=== PATIENT | male | born 1990 | race American Indian/Alaskan Native ===

== ENCOUNTER 2017-03-06 14:18 | Emergency (ER) | payer MEDICARE, OTHER ==
[2017-03-06 15:15] VITALS: BMI 23.9
[2017-03-06 15:20] VITALS: BP 103/52; PULSE 97; RESP 19; TEMP 98.3; O2SAT 98
--- NOTE | 2017-03-06 15:28 | ED PDOC ---
Arrival/HPI - General Chief Complaint: Lower Extremity Problem/Injury Time Seen by Provider: 03/06/17 15:22 Historian: Patient - History of Present Illness Narrative History of Present Illness (Text): 03/06/17 15:25 26yo wheel chair dependent male present with complaint of right ankle pain since this morning. States he usually gets around, goes to the gym and other places. states he is not sure if his hit his ankle against anything. Pain is with palpation of foot/ankle. did not take any analgesic. Denies calf pain, edema, chest pain, recent trauma, any other complaint. Past Medical History - Provider Review Nursing Documentation Reviewed: Yes - Infectious Disease Hx of Infectious Diseases: None - Tetanus Immunization Tetanus Immunization: Unknown - Past Medical History Past Medical History: No Previous - Cardiac Hx Cardiac Disorders: No - Pulmonary Hx Respiratory Disorders: No - Neurological Hx Neurological Disorder: Yes Other/Comment: paraplegic - HEENT Hx HEENT Disorder: No - Renal Hx Renal Disorder: No - Endocrine/Metabolic Hx Endocrine Disorders: No - Hematological/Oncological Hx Blood Disorders: No - Integumentary Hx Dermatological Disorder: No - Musculoskeletal/Rheumatological Hx Musculoskeletal Disorders: Yes Other/Comment: paraplegic - Gastrointestinal Hx Gastrointestinal Disorders: No - Genitourinary/Gynecological Hx Genitourinary Disorders: Yes Other/Comment: DEPENDENT ON URINARY CATHETER, self cath. - Psychiatric Hx Psychophysiologic Disorder: No Hx Depression: No Hx Emotional Abuse: No Hx Physical Abuse: No Hx Substance Use: No (sometimes) - Past Surgical History Past Surgical History: No Previous - Anesthesia Hx Anesthesia: Yes Hx Anesthesia Reactions: No - Suicidal Assessment Feels Threatened In Home Enviroment: No Family/Social History - Physician Review Nursing Documentation Reviewed: Yes Family/Social History: Unknown Family HX Smoking Status: Current Some Days Smoker Hx Alcohol Use: No Hx Substance Use: No (sometimes) Substance used: marijuana Hx Substance Use Treatment: No Allergies/Home Meds Allergies/Adverse Reactions: Allergies No Known Allergies Allergy (Verified 03/06/17 15:14) Home Medications: Home Meds Medication Instructions Recorded Confirmed Baclofen 20 mg PO QID 03/29/14 03/06/17 Pregabalin [Lyrica] 100 mg PO BID 03/29/14 03/06/17 Review of Systems - Physician Review All systems were reviewed & negative as marked: Yes - Review of Systems Constitutional: Normal Eyes: Normal ENT: Normal Respiratory: Normal Cardiovascular: Normal Gastrointestinal: Normal Genitourinary Male: Normal Musculoskeletal: Arthralgias (Right ankle/foot pain) Skin: Normal Neurological: Normal Endocrine: Normal Hemo/Lymphatic: Normal Psychiatric: Normal Physical Exam Vital Signs Reviewed: Yes Vital Signs Temp Pulse Resp BP Pulse Ox 03/06/17 15:17 98.3 F 97 H 19 103/52 L 98 Temperature: Afebrile Blood Pressure: Normal Pulse: Regular Respiratory Rate: Normal Appearance: Positive for: Well-Appearing, Non-Toxic, Comfortable Pain Distress: None Mental Status: Positive for: Alert and Oriented X 3 - Systems Exam Head: Present: Atraumatic, Normocephalic Pupils: Present: PERRL Extroacular Muscles: Present: EOMI Conjunctiva: Present: Normal Mouth: Present: Moist Mucous Membranes Neck: Present: Normal Range of Motion Respiratory/Chest: Present: Clear to Auscultation, Good Air Exchange. No: Respiratory Distress, Accessory Muscle Use Cardiovascular: Present: Regular Rate and Rhythm, Normal S1, S2. No: Murmurs Abdomen: Present: Normal Bowel Sounds. No: Tenderness, Distention, Peritoneal Signs Back: Present: Normal Inspection Upper Extremity: Present: Normal Inspection. No: Cyanosis, Edema Lower Extremity: Present: NORMAL PULSES, Normal ROM, Tenderness (Lateral right malleolus and proximal foot), Neurovascularly Intact. No: Edema, CALF TENDERNESS, Cyanosis, Swelling, Erythema, Deformity, Temperature Abnormalties Neurological: Present: GCS=15, CN II-XII Intact, Speech Normal Skin: Present: Warm, Dry, Normal Color. No: Rashes Psychiatric: Present: Alert, Oriented x 3, Normal Insight, Normal Concentration Medical Decision Making ED Course and Treatment: 03/06/17 16:03 Right ankle xray - No acute fracture noted. Bone appear osteopenic likely secondary to disuse. Arturo wrap was applied. Pt was referred to his PMD. TRT ED for any new or worsening symptoms Follow up with your Doctor Return to ED for any new or worsening symptoms - RAD Interpretation Radiology Orders: 03/06/17 15:23 ANKLE RIGHT 3 VIEWS ROUTINE [RAD] Stat FOOT RIGHT 3 VIEWS ROUTINE [RAD] Stat - Medication Orders Current Medication Orders: Discontinued Medications Ibuprofen (Motrin Tab) 600 mg PO STAT STA Stop: 03/06/17 15:25 Last Admin: 03/06/17 15:43 Dose: 600 mg Disposition/Present on Arrival - Present on Arrival Any Indicators Present on Arrival: No History of DVT/PE: No History of Uncontrolled Diabetes: No Urinary Catheter: No History of Decub. Ulcer: No History Surgical Site Infection Following: None - Disposition Have Diagnosis and Disposition been Completed?: Yes Diagnosis: Ankle pain Disposition: HOME/ ROUTINE Disposition Time: 16:05 Patient Plan: Discharge Condition: STABLE Discharge Instructions (ExitCare): Arthralgia (ED) Additional Instructions: Follow up with your Doctor Return to ED for any new or worsening symptoms Prescriptions: Ibuprofen [Motrin Tab] 600 mg PO Q6 #20 tab Referrals: Anyi Heredia MD [Primary Care Provider] - Follow up with primary
--- NOTE | 2017-03-07 08:48 | RAD ---
PROCEDURE: Right Ankle Radiographs. HISTORY: ankle pain COMPARISON: None FINDINGS: BONES: Normal. No fracture. JOINTS: Normal. No osteoarthritis. Ankle mortise maintained. Talar dome intact SOFT TISSUES: Normal. OTHER FINDINGS: None. IMPRESSION: Normal right ankle radiographs.
--- NOTE | 2017-03-07 08:49 | RAD ---
PROCEDURE: Right Foot Radiographs. HISTORY: foot pain COMPARISON: None. FINDINGS: BONES: Normal. No fracture. JOINTS: Normal. SOFT TISSUES: Normal. OTHER FINDINGS: None. IMPRESSION: Normal right foot radiographs.
== END 2017-03-06 16:21 | disposition home or self-care (01) ==
LOC: ED 14:18
DX: M25.571 Pain in right ankle and joints of right foot (principal)

== ENCOUNTER 2017-07-26 19:44 | Emergency (ER) | payer MEDICARE, OTHER ==
[2017-07-26 19:56] VITALS: BMI 24.3
[2017-07-26 19:59] VITALS: BP 111/72; PULSE 86; RESP 19; TEMP 98.2; O2SAT 97
--- NOTE | 2017-07-26 20:24 | ED PDOC ---
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 Denies any fever, chills, trauma, injury, CP, SOB, rash. Past Medical History - Provider Review Nursing Documentation Reviewed: Yes - Infectious Disease Hx of Infectious Diseases: None - Tetanus Immunization Tetanus Immunization: Unknown - Past Medical History Past Medical History: No Previous - Cardiac Hx Cardiac Disorders: No - Pulmonary Hx Respiratory Disorders: No - Neurological Hx Neurological Disorder: Yes Other/Comment: paraplegic - HEENT Hx HEENT Disorder: No - Renal Hx Renal Disorder: No - Endocrine/Metabolic Hx Endocrine Disorders: No - Hematological/Oncological Hx Blood Disorders: No - Integumentary Hx Dermatological Disorder: No - Musculoskeletal/Rheumatological Hx Musculoskeletal Disorders: Yes Other/Comment: paraplegic - Gastrointestinal Hx Gastrointestinal Disorders: No - Genitourinary/Gynecological Hx Genitourinary Disorders: Yes Other/Comment: DEPENDENT ON URINARY CATHETER, self cath. - Psychiatric Hx Psychophysiologic Disorder: No Hx Depression: No Hx Emotional Abuse: No Hx Physical Abuse: No Hx Substance Use: Yes (sometimes) - Past Surgical History Past Surgical History: No Previous - Anesthesia Hx Anesthesia: Yes Hx Anesthesia Reactions: No - Suicidal Assessment Feels Threatened In Home Enviroment: No Family/Social History - Physician Review Nursing Documentation Reviewed: Yes Family/Social History: No Known Family HX Smoking Status: Never Smoked Hx Alcohol Use: No Hx Substance Use: Yes (sometimes) Substance used: marijuana Hx Substance Use Treatment: No Allergies/Home Meds Allergies/Adverse Reactions: Allergies Penicillins Allergy (Verified 07/26/17 19:56) REDNESS Home Medications: Home Meds Medication Instructions Recorded Confirmed Baclofen 20 mg PO QID 03/29/14 07/26/17 Pregabalin [Lyrica] 100 mg PO BID 03/29/14 07/26/17 Review of Systems - Review of Systems Constitutional: Normal. absent: Fatigue, Weight Change, Fevers Respiratory: Normal. absent: SOB, Cough, Sputum Cardiovascular: Normal. absent: Chest Pain, Palpitations, Edema Musculoskeletal: Normal. absent: Arthralgias, Back Pain, Neck Pain Skin: Normal. absent: Rash, Pruritis, Skin Lesions Neurological: Normal, Other (neuropathy to legs). absent: Headache, Dizziness, Focal Weakness Physical Exam - Physical Exam Narrative Physical Exam (Text): 07/26/17 21:03 GENERAL APPEARANCE: Patient is awake, alert, oriented x 3, in no acute distress. SKIN: Warm, dry; (-) cyanosis. EYES: (-) conjunctival pallor. ENMT: Mucous membranes moist. NECK: (-) tenderness, (-) stiffness, (-) lymphadenopathy. CHEST AND RESPIRATORY: (-) rash, (-) tenderness. Lungs: (-) rales, (-) rhonchi, (-) wheezes, (-) rub; breath sounds equal bilaterally. HEART AND CARDIOVASCULAR: (-) irregularity; (-) murmur, (-) gallop, (-) rub. ABDOMEN AND GI: Soft; (-) distention, (-) tenderness, (-) palpable pulsatile mass. EXTREMITIES: (-) tenderness, (-) deformity; (-) edema, (-) calf tenderness. ( +) distal pulses. NEURO AND PSYCH: Mental status as above. Cranial nerves grossly intact; strength symmetric. Vital Signs Temp Pulse Resp BP Pulse Ox 07/26/17 19:58 98.2 F 86 19 111/72 97 Medical Decision Making ED Course and Treatment: 07/26/17 21:01 26 yo M w/ pmh of neuropathy presents for refill of his lyrica for his neuropathy to the legs, has no other complaints. Patient medicated with lyrica 100 mg po. Follow up with primary care physician in 1-2 days without fail. Advised to take medication as prescribed. Return to the emergency room at any time for any new or worsening symptoms. - Medication Orders Current Medication Orders: Discontinued Medications Pregabalin (Lyrica) 100 mg PO STAT STA Stop: 07/26/17 20:20 Last Admin: 07/26/17 20:47 Dose: Disposition/Present on Arrival - Present on Arrival Any Indicators Present on Arrival: No History of DVT/PE: No History of Uncontrolled Diabetes: No Urinary Catheter: No History of Decub. Ulcer: No History Surgical Site Infection Following: None - Disposition Have Diagnosis and Disposition been Completed?: Yes Diagnosis: Neuropathy Disposition: HOME/ ROUTINE Disposition Time: 20:21 Patient Plan: Discharge Patient Problems: Current Active Problems Problem Status Onset Neuropathy Acute Condition: STABLE Discharge Instructions (ExitCare): Peripheral Neuropathy (ED) Print Language: LIBERIAN Additional Instructions: Thank you for letting us take care of you today. You were treated for neuropathy. The emergency medical care you received today was directed at your acute symptoms. If you were prescribed any medication, please fill it and take as directed. It may take several days for your symptoms to resolve. Return to the Emergency Department if your symptoms worsen, do not improve, or if you have any other problems. Please contact your doctor in 2 days for re-evaluation and follow up. Bring any paperwork you were given at discharge with you along with any medications you are taking to your follow up visit. Our treatment cannot replace ongoing medical care by a primary care provider (PCP) outside of the emergency department. Thank you for allowing the [facility] team to be part of your care today. Prescriptions: Pregabalin [Lyrica] 100 mg PO TID #30 capsule Referrals: Ish Benton, [Primary Care Provider] - Follow up with primary Forms: [employer] (Croatian)
== END 2017-07-26 20:25 | disposition home or self-care (01) ==
LOC: ED 19:44
DX: G62.9 Polyneuropathy, unspecified (principal); Z99.3 Dependence on wheelchair

== ENCOUNTER 2017-10-31 19:03 | Emergency (ER) | payer MEDICARE, MEDICAID ==
[2017-10-31 19:03] VITALS: BMI 24.3
[2017-10-31 19:13] VITALS: BP 116/67; PULSE 88; RESP 16; TEMP 98.6; O2SAT 96
== END 2017-10-31 22:19 | disposition left against medical advice (07) ==
LOC: ED 19:03
DX: Z02.89 Encounter for other administrative examinations (principal); M54.2 Cervicalgia

== ENCOUNTER 2017-12-06 19:30 | Emergency (ER) | payer MEDICAID, MEDICARE ==
[2017-12-06 19:31] VITALS: BMI 24.3
[2017-12-06 19:53] VITALS: TEMP 98.8
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
[2017-12-06 20:37] VITALS: BP 131/82; PULSE 86; RESP 16; O2SAT 100
== END 2017-12-06 20:36 | disposition home or self-care (01) ==
LOC: ED 19:30
DX: G62.9 Polyneuropathy, unspecified (principal)

== ENCOUNTER 2018-11-06 12:03 | Emergency (ER) | payer MEDICARE, MEDICAID ==
[2018-11-06 12:03] VITALS: BMI 24.3
[2018-11-06 12:32] VITALS: RESP 18; O2SAT 99
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
--- NOTE | 2018-11-06 14:24 | RAD ---
Date of service: 11/06/2018 PROCEDURE: Right Knee Radiographs. HISTORY: injury, pain COMPARISON: None. FINDINGS: BONES: There is diffuse bone demineralization. There is no acute fracture or bone destruction. Bone alignment is JOINTS: The joint spaces are preserved JOINT EFFUSION: There is a large suprapatellar joint effusion OTHER FINDINGS: There is moderate suprapatellar soft tissue swelling. IMPRESSION: Large suprapatellar joint effusion and moderate suprapatellar soft tissue swelling. No acute fracture or dislocation
[2018-11-06 17:09] VITALS: BP 110/59; PULSE 71; TEMP 98.2
== END 2018-11-06 17:55 | disposition home or self-care (01) ==
LOC: ED 12:03
DX: M25.461 Effusion, right knee (principal); W06.XXXA Fall from bed, initial encounter
CPT/HCPCS: 73560; 96372; 99284; J1885